=== PATIENT | female | born 1980 | race Caucasian/White ===

== ENCOUNTER 2021-11-12 10:30 | Emergency (ER) | payer OTHER, SELFPAY ==
--- NOTE | ~2021-11-12 | XR_ITS ---
EXAMINATION: XR chest 2V DATE: 11/12/2021 10:51 INDICATION: Cough and fever. TECHNIQUE: Frontal and lateral views of the chest were obtained. COMPARISON: None. FINDINGS: There are airspace opacities in left lower lobe. No pleural effusion or pneumothorax. The h eart size is normal. IMPRESSION: 1. Airspace opacities in left lower lobe, consistent with pneumonia. Reviewed, dictated and finalized at location A.
--- NOTE | 2021-11-12 10:33 | ED.URI ---
HPI - URI/Sore Throat General Chief Complaint: Upper Respiratory Infection Stated Complaint: Cough, fever, sore throat Time Seen by Provider: 11/12/21 10:34 Source: patient and RN notes reviewed History of Present Illness HPI Narrative: Patient is a 41-year-old female who presents the urgent care with complaints of cough, low-grade fever and sore throat since Thursday. Patient states that her youngest daughter had the symptoms that started last Thursday and just now was able to go back to school. Patient reports of increased shortness of breath and slight wheezing in the evenings. Denies of any nausea or vomiting. States that she is taking NyQuil and DayQuil every day since been started. States that her daughter was seen in urgent care this weekend and was negative for Covid, influenza and strep. No other acute complaints. No acute distress noted. Patient aware of the plan of care. Some parts of this dictation were generated by voice recognition software and may contain typographical and/or grammatical inaccuracies. Related Data Home Medications Medication Instructions Recorded Confirmed levothyroxine 88 mcg tablet 88 mcg PO DAILY tablet 07/26/20 04/05/21 desogestrel-e.estradiol 0.15 1 tablet PO DAILY 03/06/21 04/05/21 mg-0.02 mg(21)/e.estrad 0.01 mg(5) tablet Allergies Allergy/AdvReac Type Severity Reaction Status Date / Time No Known Allergies Allergy Unverified 04/04/21 16:31 Review of Systems Review of Systems: CONSTITUTIONAL: Denies fever, chills, or sweats. EYES: Denies visual changes, redness, or discharge. ENT: Reports of sinus congestion and mild sore throat CARDIOVASCULAR: Denies chest pain, palpitations, or edema. RESPIRATORY: Reports of nonproductive cough with wheezing and dyspnea GASTROINTESTINAL: Denies abdominal pain, nausea, vomiting, or diarrhea. GENITOURINARY: Denies dysuria or hematuria. SKIN: Denies rash or itching. MUSCULOSKELETAL: Denies back pain, joint pain, or myalgia. NEUROLOGIC: Denies headache, numbness, or weakness. All other systems reviewed are negative, except as documented in HPI. [facility] Past Medical History Medical History ANKIT (generalized anxiety disorder) Lucho's thyroiditis Hypothyroidism Migraines Family History Family History Mother Patient's mother is in good health Family history of colitis Family history of malignant neoplasm Father Patient's father is in good health Sibling Patient's sister is in good health Patient's brother is in good health Family history of malignant neoplasm Social History Social History (Updated 04/04/21 @ 16:31 by Jennifer Jackson) Social History: Single Years smoked: 28 Smoking status: Former smoker Tobacco type: cigarettes Second hand tobacco smoke exposure: Yes Alcohol intake: current Alcohol use details: occasionally Substance use: never Substance use type: does not use Gender identity (if verbalized by the patient): Female Sexual Orientation (if Verbalized by the Patient): Straight or Heterosexual Comments At the time of my signature, I reviewed and agree with the nursing past medical, surgical, social, and family history. There is no relevant family history pertinent to the patient complaint. Exam Narrative: GENERAL: This is a well-nourished, well-developed patient, in no apparent distress. HEAD: normocephalic, atraumatic. EYES: PERRL. Sclera clear/white. Vision is grossly intact. EARS: External ears normal, auditory canals clear and without drainage, TMs normal without perforation. Hearing grossly intact. NOSE: External nose normal with no obvious nasal discharge, nares without redness, clear rhinorrhea. THROAT: Mucous membranes moist, posterior pharynx clear. Mild postnasal drainage NECK: Neck supple CARDIOVASCULAR: Regular rate and rhythm without murmurs, gallops, or rubs.
[2021-11-12 10:38] VITALS: BP 141/78; PULSE 108; RESP 20; TEMP 36.6; O2SAT 99
[2021-11-12 10:43] VITALS: BP 141/78; PULSE 108; RESP 20; TEMP 36.6; O2SAT 99
== END 2021-11-12 11:27 | disposition home or self-care (01) ==
PROVIDERS: Emergency Provider Nurse Practitioner Family; PCP Family Medicine
DX: J18.1 Lobar pneumonia, unspecified organism (principal); E06.3 Autoimmune thyroiditis; E03.9 Hypothyroidism, unspecified; Z87.891 Personal history of nicotine dependence
CPT/HCPCS: 71046; 99213; G0463

== ENCOUNTER → 2021-12-11 11:04 | Outpatient (CLI) | payer OTHER, SELFPAY ==
--- NOTE | ~2021-12-11 | US_ITS ---
EXAMINATION: US thyroid DATE: 12/11/2021 11:31 INDICATION: Autoimmune thyroiditis TECHNIQUE: Multiple ultrasound images of the thyroid were obtained. COMPARISON: None. FINDINGS: The right thyroid lobe measures 4.5 x 1.6 x 1.5 cm. The left thyroid lobe measures 3.4 x 1.1 x 1.3 c m. No discrete nodules identified. The thyroid is diffusely hypoechoic with coarsened echotexture. IMPRESSION: 1. Diffusely hypoechoic thyroid with coarsened echotexture without discrete nodules consistent with p rovided history of autoimmune thyroiditis. Reviewed, dictated and finalized at location B. IMPRESSION: 1. Diffusely hypoechoic thyroid with coarsened echotexture without discrete nod ules consistent with provided history of autoimmune thyroiditis.
== END ==
PROVIDERS: PCP Family Medicine; Visit Provider Family Medicine
DX: E06.3 Autoimmune thyroiditis (principal); E03.9 Hypothyroidism, unspecified; E04.1 Nontoxic single thyroid nodule
CPT/HCPCS: 76536

== ENCOUNTER 2022-04-09 04:18 | Emergency (ER) | payer OTHER, SELFPAY ==
--- NOTE | ~2022-04-09 | XR_ITS ---
EXAMINATION: XR chest 2V DATE: 04/09/2022 05:03 INDICATION: Mid chest pain. TECHNIQUE: Frontal and lateral views of the chest were obtained. COMPARISON: Chest 2 views 11/12/2021, chest CT 04/09/2022 FINDINGS: The chest demonstrates clear lungs without pneumonia, pleural effusion, or pneumothorax. Th e heart size is normal. IMPRESSION: 1. No acute cardiopulmonary disease. Reviewed, dictated and finalized at location A.
--- NOTE | ~2022-04-09 | CT_ITS ---
EXAMINATION: CT chest abdomen pelvis w con DATE: 04/09/2022 05:52 INDICATION: Chest pain. Abdominal pain. Vomiting. TECHNIQUE: Computed tomography (CT) of the chest, abdomen, and pelvis was performed with 100 mL Omnip aque 350 intravenous contrast. Automated exposure control and iterative reconstruction technique were employed. The dose-length product was 1367.08 mGy-cm. COMPARISON: None FINDINGS: CHEST CT: There is mild dependent atelectasis bilaterally. No pleural effusion. The heart size is normal. No pe ricardial effusion. There is mild thoracic spondylosis. ABDOMEN/PELVIS CT: The liver and spleen are normal. The gallbladder is distended and contains gallstones. Gallbladder wa ll thickening is noted. There is pericholecystic fat stranding. The pancreas, adrenal glands, and kid neys are normal. There are no dilated loops of bowel. The appendix is normal. There are no pathologic ally enlarged lymph nodes. There is no free intraperitoneal fluid. There is mild lumbar spondylosis. IMPRESSION: 1. Acute cholecystitis. Reviewed, dictated and finalized at location A. IMPRESSION: 1. Acute cholecystitis.
--- NOTE | 2022-04-09 04:23 | ED.CHESTPAIN ---
HPI - Chest Pain General Chief Complaint: Chest Pain <Liyah Cain MD - Last Filed: 04/09/22 06:34> Stated Complaint: chest pain <Liyah Cain MD - Last Filed: 04/09/22 06:34> Time Seen by Provider: 04/09/22 04:23 <Liyah Cain MD - Last Filed: 04/09/22 06:34> Source: patient <Liyah Cain MD - Last Filed: 04/09/22 06:34> Mode of arrival: ambulatory <Liyah Cain MD - Last Filed: 04/09/22 06:34> Limitations: no limitations <Liyah Cain MD - Last Filed: 04/09/22 06:34> History of Present Illness HPI narrative: Patient is a 41-year-old female with a history of Lucho's/hypothyroidism presenting to the emergency department for evaluation of chest and abdominal pain. Patient reports she is experiencing upper abdominal pain and lower chest pain that awaken her from sleep. It is sharp, burning in nature in a bandlike pattern across her upper abdomen. Patient reports radiation of pain to her back. She denies associated upper chest pain, jaw pain, neck pain or shoulder pain. Patient denies diaphoresis, vomiting. She does report mild nausea. Patient denies cough or hemoptysis. She denies pain with deep inspiration but states it feels difficult to take a deep breath. Patient denies recent fall or injury. She denies history of this in the past. She reports that she ate beef stroganoff for dinner, denies history of significant acid reflux or gastritis. Patient denies any radiation to the lower flanks. She denies ripping or tearing sensation. Patient denies calf swelling or leg pain. <Liyah Cain MD - Last Filed: 04/09/22 06:34> Related Data Home Medications: Home Medications Medication Instructions Recorded Confirmed levothyroxine 88 mcg tablet 88 mcg PO DAILY 07/26/20 03/19/22 desogestrel-e.estradiol 0.15 1 tablet PO DAILY 03/06/21 03/19/22 mg-0.02 mg(21)/e.estrad 0.01 mg(5) tablet (Viorele (28)) <Liyah Cain MD - Last Filed: 04/09/22 06:34> Allergies/Adverse Reactions: Allergies Allergy/AdvReac Type Severity Reaction Status Date / Time No Known Allergies Allergy Unverified 03/19/22 13:05 <Liyah Cain MD - Last Filed: 04/09/22 06:34> Review of Systems Review of Systems: CONSTITUTIONAL: Denies fever, chills, or sweats. EYES: Denies visual changes, redness, or discharge. ENT: Denies rhinorrhea, congestion, sore throat, or otalgia. CARDIOVASCULAR: Patient reports lower chest pain without palpitations or edema RESPIRATORY: Denies cough, patient reports shortness of breath GASTROINTESTINAL: Patient reports upper abdominal pain, nausea without vomiting or diarrhea GENITOURINARY: Denies dysuria or hematuria. SKIN: Denies rash or itching. MUSCULOSKELETAL: Patient reports middle back pain without other joint pain, or myalgia. NEUROLOGIC: Denies headache, numbness, or weakness. <Liyah Cain MD - Last Filed: 04/09/22 06:34> [facility] Past Medical History Medical History: Medical History ANKIT (generalized anxiety disorder) Lucho's thyroiditis Hypothyroidism Migraines <Liyah Cain MD - Last Filed: 04/09/22 06:34> Family History Family History: Family History Mother Patient's mother is in good health Family history of colitis Family history of malignant neoplasm Father Patient's father is in good health Sibling Patient's sister is in good health Patient's brother is in good health Family history of malignant neoplasm <Liyah Cain MD - Last Filed: 04/09/22 06:34> Social History Social History: Social History Social History: Single Years smoked: 28 Smoking status: Former smoker Tobacco type: cigarettes Second hand tobacco smoke exposure: Yes Alcohol intake: current Alcohol use details: occasi
[2022-04-09 04:25] VITALS: BP 167/107; PULSE 94; RESP 20; TEMP 36.4; O2SAT 100
--- NOTE | 2022-04-09 04:29 | ECG_ITS ---
Measurements Intervals [place] Rate: 85 P: 58 SD: 129 QRS: 5 QRSD: 81 T: 41 QT: 396 QTc: 472 Interpretive Statements SINUS RHYTHM WITH FREQUENT AND CONSECUTIVE VENTRICULAR PREMATURE COMPLEXES NONSPECIFIC T-WAVE ABNORMALITY ABNORMAL RHYTHM ECG NO PREVIOUS ECG AVAILABLE FOR COMPARISON Electronically Signed On 04-14-2022 16:44:36 CDT by Art Brand M.D.
--- NOTE | 2022-04-09 04:33 | ECG_ITS ---
Measurements Intervals [place] Rate: 69 P: 44 MS: 138 QRS: 9 QRSD: 88 T: 13 QT: 408 QTc: 439 Interpretive Statements SINUS RHYTHM NONSPECIFIC T-WAVE ABNORMALIT BORDERLINE ECG NO PREVIOUS ECG AVAILABLE FOR COMPARISON Electronically Signed On 04-09-2022 16:05:06 CDT by Roscoe Flores M.D.
[2022-04-09] MEDS: ONDANSETRON INJ 4 MG/2 ML VIAL IV PUSH (04:39)
[2022-04-09 04:42] LABS: Basophils Percent Auto 0.3 % (0.2-1.2); Eosinophils Absolute Auto 0.4 K/mm3 (0-0.3); Eosinophils Percent Auto 2.8 % (0-4.4); Hematocrit 36.5 % (37.0-47.0); Hemoglobin 11.7 g/dL (12.0-15.0); Immature Granulocyte Absolute 0.04 K/mm3 (0.00-0.031); Immature Granulocyte Percent A 0.3 % (0-0.5); Lymphocytes Percent Auto 34.2 % (18.3-44.2); Mean Corpuscular HGB Conc 32.1 g/dl (32-36); Mean Corpuscular Hemoglobin 26.4 pg (26-34); Mean Corpuscular Volume 82.4 fl (80-100); Mean Platelet Volume 8.8 fl (7.4-10.4); Monocytes Absolute Auto 0.7 K/mm3 (0.1-0.6); Monocytes Percent Auto 5.9 % (2.6-8.5); Neutrophils Absolute Auto 6.9 K/mm3 (1.3-6.7); Neutrophils Percent Auto 56.5 % (45.5-73.1); Platelet Count Result 440 k/mm3 (150-375); Red Blood Count 4.43 M/mm3 (4.2-5.4); Red Cell Distribution Width 15.6 % (11.5-14.5); White Blood Count 12.3 K/mm3 (4.5-10.0)
[2022-04-09 04:48] VITALS: O2SAT 99
[2022-04-09 04:51] LABS: Alanine Aminotransferase 15 U/L (6-35); Albumin Level 3.9 g/dL (3.5-5.1); Alkaline Phosphatase 100 U/L (38-126); Anion Gap 11 mmol/L (8-16); Aspartate Amino Transferase 23 U/L (14-36); Bilirubin,Total 0.3 mg/dL (0.2-1.3); Blood Urea Nitrogen 11 mg/dL (7-17); Calcium 8.7 mg/dL (8.4-10.2); Carbon Dioxide 23 mmol/L (22-30); Chloride 104 mmol/L (98-107); Estimated CRCL calculation 79 ml/min; Estimated Glomerular Filt Rate > 60; Glucose 112 mg/dL (65-110); Lipase 123 U/L (23-300); Potassium 3.1 mmol/L (3.4-5.0); Sodium 138 mmol/L (137-145)
[2022-04-09] MEDS: MORPHINE SULFATE (*CRX) 4 MG/ML INJ IV PUSH (04:52)
[2022-04-09 04:53] LABS: INR 0.9; Partial Thromboplastin Time 24.1 SECONDS (22.3-36.8); Prothrombin Time 11.9 Seconds (11.1-14.7)
[2022-04-09] MEDS: ASPIRIN 81 MG CHEWABLE TABLET 324 MG PO (04:53)
[2022-04-09 05:05] LABS: Troponin I < 0.012 ng/mL (0.000-0.034)
[2022-04-09] MEDS: BELLADONNA ALK/PHENOB ELIX 10 ML, MAG HYDROX/ALUMINUM HYD/SIMETH 30 ML, LIDOCAINE HCL 2... PO (05:29)
[2022-04-09 05:38] VITALS: BP 153/90; PULSE 67; RESP 20; O2SAT 98
--- NOTE | 2022-04-09 05:39 | PC.NURSE ---
Pt to CT scan via stretcher.
[2022-04-09 06:30] LABS: Appearance Urine Clear (Clear); Bilirubin Urine Negative (Negative); Blood Urine 2+ (Negative); Color Urine Yellow (Yellow); Glucose Urine UA Negative (Negative); Ketones Urine Negative (Negative); Leukocyte Esterase Ur Negative LEU/UL (Negative); Nitrate Urine Negative (Negative); Protein Urine Negative (Negative); Urobilinogen Urine 0.2 mg/dL (<2.0)
[2022-04-09 06:34] LABS: Mucus Urine Rare /lpf; RBC Urine >75 /hpf (0-2); Squamous Epithelial Cell Urine Rare /hpf (Few)
[2022-04-09] MEDS: FAMOTIDINE 20 MG TABLET 40 MG PO (06:34)
[2022-04-09 06:36] LABS: Add Urine Microscopic? YES
[2022-04-09 06:39] VITALS: BP 133/74; PULSE 72; RESP 20; O2SAT 100
[2022-04-09 08:26] VITALS: BP 130/75; PULSE 74; RESP 20; O2SAT 99
[2022-04-09 08:30] LABS: Troponin I < 0.012 ng/mL (0.000-0.034)
== END 2022-04-09 08:28 | disposition home or self-care (01) ==
PROVIDERS: Emergency Provider Emergency Medicine; PCP Family Medicine
DX: K81.0 Acute cholecystitis (principal); E06.3 Autoimmune thyroiditis; E03.9 Hypothyroidism, unspecified; Z87.891 Personal history of nicotine dependence; I49.3 Ventricular premature depolarization
CPT/HCPCS: 36415; 71046; 71260; 74177; 80053; 81001; 83690; 84484; 85025; 85610; 85730; 93005; 96374; 96375; 99284; A9270; J2270; J2405; Q9967

== ENCOUNTER 2022-04-17 12:02 | Outpatient (CLI) | payer OTHER, SELFPAY ==
--- NOTE | ~2022-04-17 | US_ITS ---
EXAMINATION: US venous doppler [facility] DATE: 04/17/2022 12:51 INDICATION: Other specified soft tissue disorders. TECHNIQUE: Grayscale ultrasound images without and with compression and Doppler ultrasound images of the left upper extremity veins were obtained. COMPARISON: None. FINDINGS: The visualized portions of the left internal jugular vein, subclavian vein, axillary vein, brachial v eins, basilic vein, radial vein, and ulnar vein are patent. There is thrombus in left cephalic vein. IMPRESSION: 1. No deep venous thrombosis. 2. Thrombus in left cephalic vein, which is a superficial vein. Reviewed, dictated and finalized at location A.
== END 2022-04-17 12:03 | disposition home or self-care (01) ==
PROVIDERS: PCP Family Medicine; Visit Provider Physician Assistant
DX: M79.89 Other specified soft tissue disorders (principal); I82.612 Acute embolism and thrombosis of superficial veins of left upper extremity
CPT/HCPCS: 93971

== ENCOUNTER 2022-04-28 09:31 | Outpatient (CLI) | payer OTHER, SELFPAY ==
[2022-04-28 10:28] LABS: Potassium 3.5 mmol/L (3.4-5.0)
[2022-04-28 10:31] LABS: Amylase 45 U/L (30-110)
== END 2022-04-28 09:32 | disposition home or self-care (01) ==
LOC: ANHSURGERY 09:39
PROVIDERS: Anesthesiology; PCP Family Medicine; Visit Provider Surgery
DX: E87.6 Hypokalemia (principal); K81.0 Acute cholecystitis
CPT/HCPCS: 36415; 82150; 84132; 86850; 86900; 86901

== ENCOUNTER 2022-04-29 01:09 | Day surgery (SDC) | payer OTHER, SELFPAY ==
[2022-04-24 13:53] VITALS: BMI 35.8
--- NOTE | 2022-04-24 14:10 | PC.NURSE ---
Addendum entered by Amy Mohan RN 04/25/22 10:26: PT MAY ALSO TAKE ANTIBIOTICS AND PAIN PILL (IF NEEDED) MORNING OF SURGERY WITH A SMALL SIP OF WATER. Addendum entered by Deysi Fang RN 04/24/22 14:30: LAST DOSE TO TAKE VITAMIN 04-27-22 Original Note: Report to the Outpatient Waiting Room, entrance under the green pavilion located off [address], at time ____10:00AM___ on date __[id number] . OR Time: ___12:00PM . Time changes happen often and if your time is changed the preop area will call you the afternoon before. - You and your visitor will be asked to self-screen and do not enter if you have any COVID symptoms. - Only one visitor and NO children visitors are allowed at this time. - The patient visitor is requested to leave or wait in car when not with patient due to restrictions. - A mask is required within the hospital. Patients may have clear liquids (water, carbonated beverages, clear teas, apple juice) until 3 hours prior to surgery with a maximum of 20 ounces. - No food from midnight until time of surgery - NOTHING TO DRINK AFTER 09:00AM Take the following medications with a SIP of water the morning of surgery: LEVOTHYROXINE Medications to discontinue per physician VITAMINS Date to take last mnul____3-7-10 Please no make-up, nail congolese, hairspray, perfume, deodorant, or body powder the day of surgery. No jewelry (including any body piercings) or valuables the day of surgery, leave them at home. Please take a shower or bath the night before, or the morning of, surgery with an antibacterial soap. Wear comfortable, loose fitting clothing. - Jewelry must be removed prior to entering the operating room. Rings and piercings that are not removed may be cut off. - The hospital will not accept responsibility for valuables. - Please leave all valuables, including medications, at home the day of surgery. If you are going home after surgery, a licensed commercial collections driver must drive you home. - NO public transportation without another adult. - We recommend that an adult stay with you for 24 hours following discharge. - We also recommend that you do not drive, make important decision, drink alcoholic beverages, or take any drugs that were not prescribed by your health care provider for at least 24 hours after your discharge time. Follow any additional instructions given to you from your surgeon. If you or anyone in your household have experienced Covid symptoms in the past week, please notify your surgeon or the nurse liaison at the phone number below for possible testing. Telephone instructions given to ___PATIENT and asked if any additional questions and then verbalized understanding. Patient advised to call surgeon office or pre surgery nurse liaison [phone] if any additional questions.
[2022-04-29] VITALS (10 sets, daily range): BP systolic 124–156; BP diastolic 71–85; PULSE 79–95; RESP 16–20; TEMP 36.4–36.7; O2SAT 94–100
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
--- NOTE | 2022-04-29 11:21 | WPDHPUPDATE1 ---
History and Physical Update Update Date/Time: 04/29/22 11:21 History and Physical has been reviewed, including an updated exam of the patient. There are NO changes in the patient's condition. Risks, benefits, and alternatives have been discussed and questions answered. Patient agrees to proceed with procedure.
[2022-04-29] MEDS: LACTATED RINGERS 1,000 ML 30 ML IV CONT ×2 (11:40→13:09)
[2022-04-29] MEDS: ACETAMINOPHEN 500 MG TABLET 1000 MG PO (11:41)
[2022-04-29] MEDS: KETOROLAC 15 MG/ML VIAL (*BKC) IV PUSH (11:41)
[2022-04-29] MEDS: ceFAZolin 2 GM/D5W 50 ML 2 GM/50 ML BAG IVPB (11:44)
[2022-04-29] MEDS: BUPIVACAINE/EPINEPHRINE 0.25% 50 ML VIAL INFILTRATE (12:07)
--- NOTE | 2022-04-29 12:47 | W.PM.PROC2 ---
Procedure Note - Detailed Date of Procedure 04/29/22 Pre-op Diagnosis acute cholecystitis, cholelithiasis Post-op Diagnosis Same Procedure Performed Laparoscopic cholecystectomy Surgeon Shavon Rosa MD Anesthesia General Indications 41-year-old female presented to the office complaining of postprandial right upper quadrant abdominal pain associated with nausea and vomiting. Workup including imaging significant for cholecystitis, cholelithiasis. Findings Cholecystitis with cholelithiasis Description of Procedure The patient was taken to the operating room placed in the supine position. After adequate induction of general anesthesia, the patient was prepped and draped in normal sterile fashion. A time-out was then performed to verify the patient's identity as well as the procedure being performed. I then made a 5 mm incision in the infraumbilical region. Through this, a Veress needle was placed into the peritoneal cavity and CO2 gas was then insufflated. After adequate pneumoperitoneum was achieved, the Veress needle was removed and a 5 mm optiview trocar was placed through this incision under direct visualization. I then placed the laparoscope through this trocar site and under direct visualization placed a further 12 mm subxiphoid port as well as 2 additional 5 mm ports in the right upper abdomen. The gallbladder was then identified and was noted to be moderately inflamed, and distended. I was able to place a grasper at the dome of the gallbladder and this was retracted anterior and cephalad up over the liver. A 2nd retractor was then placed at the infundibulum and retracted laterally, this allowed visualization of the triangle of Calot. I then was able to visualize the cystic duct in its entirety from its proximal insertion into the gallbladder, to its distal junction with the common hepatic/common bile duct junction. At this point, I carefully skeletonized the proximal cystic duct with the [place] dissector. I then clipped and transected the proximal cystic duct. Next I visualized the cystic artery. Again the artery was skeletonized, clipped, and transected. I then used the Bovie cautery to take down the peritoneal attachments of the gallbladder off the liver bed. Once the gallbladder specimen was completely detached, an endo-pouch was placed through the 12 mm port site. I then placed the gallbladder specimen into the Endo pouch and removed the endo-pouch from the 12 mm port site. The specimen will now be sent to pathology for further review. I then copiously irrigated the right upper quadrant. Hemostasis was noted in the liver bed, the clips were noted to be in good position on both the cystic duct stump and the cystic artery stump. No other pathology was noted in the right upper quadrant. I then moved the laparoscope to the subxiphoid port. No iatrogenic injury or other pathology was noted in the lower abdomen. I then closed the 12 mm trocar site under direct visualization using the Nahum cone and 0 Vicryl suture. At this point, the abdomen was desufflated and all ports removed. All port sites were then closed with 4.O Monocryl subcuticular sutures. Dermabond was placed on each incision. The patient tolerated the procedure well, was extubated in the operating room postoperative and will be transferred to the recovery room in stable condition Estimated Blood Loss 5 Drains No Packing No Pathology Yes Complications No immediate complications Condition Stable Disposition PACU [facility] Billing Surgery - Charge Forward: Surgery Billing
[2022-04-29] MEDS: fentaNYL CITRATE INJ (*CRX) 100 MCG/2 ML VIAL 25 MCG IV PUSH ×6 (12:57→13:47)
[2022-04-29] MEDS: ONDANSETRON INJ 4 MG/2 ML VIAL IV PUSH (13:03)
[2022-04-29] MEDS: oxyCODONE HCL (*CRX) 5 MG TAB IR PO (14:12)
== END 2022-04-29 15:00 | disposition home or self-care (01) ==
PROVIDERS: PCP Family Medicine; Visit Provider Surgery
PROC: 0FT44ZZ Resection of Gallbladder, Percutaneous Endoscopic Approach (ICD-10-PCS; CPT 47562; principal; 2022-04-29 12:00)
DX: K80.10 Calculus of gallbladder with chronic cholecystitis without obstruction (principal); E03.9 Hypothyroidism, unspecified; F41.1 Generalized anxiety disorder; E06.3 Autoimmune thyroiditis; Z86.73 Personal history of transient ischemic attack (TIA), and cerebral infarction without residual deficits; F17.210 Nicotine dependence, cigarettes, uncomplicated; E66.9 Obesity, unspecified; Z68.36 Body mass index [BMI] 36.0-36.9, adult
CPT/HCPCS: 47562; 88304; A9270; J0690; J1100; J1885; J2250; J2405; J2704; J2710; J3010; J7030; J7120

== ENCOUNTER 2024-04-23 00:21 | Inpatient (IN) | payer OTHER, SELFPAY ==
[2024-04-23] VITALS (37 sets, daily range): BP systolic 118–161; BP diastolic 61–97; PULSE 105–156; RESP 18–95; TEMP 37–39.9; O2SAT 88–100; BMI 31.1
--- NOTE | ~2024-04-23 | CT_ITS ---
EXAMINATION: CTA chest PE protocol DATE: 04/23/2024 02:33 INDICATION: Hypoxia. Tachycardia. TECHNIQUE: Computed tomography angiography (CTA) of the chest was performed with 100 mL Omnipaque-350 intravenous contrast timed to evaluate the pulmonary arteries. Coronal maximum intensity projection 3D-reconstructions were created by the technologist. Automated exposure control and iterative reconst ruction technique were employed. The dose-length product was 342.22 mGy-cm. COMPARISON: Chest CT 04/09/2022 FINDINGS: There are scattered centrilobular nodules in all lobes. There are airspace opacities in rig ht upper lobe and medial segment right middle lobe with air bronchograms. There is a small right pleu ral effusion. The heart size is normal. No pericardial effusion. There are changes of cholecystectomy . There is no pulmonary embolus. There is mild thoracic spondylosis. IMPRESSION: 1. No pulmonary embolus. 2. Multifocal pneumonia, worst in right upper lobe. 3. Small right pleural effusion. Reviewed, dictated and finalized at location A.
--- NOTE | ~2024-04-23 | XR_ITS ---
EXAMINATION: XR chest PICC line DATE: 04/23/2024 10:16 INDICATION: Central line placement. TECHNIQUE: A single frontal view of the chest was obtained. COMPARISON: Chest 2 views 04/09/2022, chest CT 04/23/2024 FINDINGS: There are airspace opacities in all lung zones, worst in right upper lobe, consistent with pneumonia. No pleural effusion or pneumothorax. The heart size is normal. A right upper extremity per ipherally inserted central venous catheter (PICC) is seen with tip at the superior cavoatrial junctio n. IMPRESSION: 1. PICC tip at superior cavoatrial junction. 2. Multifocal pneumonia, worst in right upper lobe. Reviewed, dictated and finalized at location A.
--- NOTE | ~2024-04-23 | XR_ITS ---
EXAMINATION: XR abdomen/kub 1V DATE: 04/23/2024 11:05 INDICATION: Nasogastric tube placement. TECHNIQUE: An upright view of the abdomen was obtained. COMPARISON: None. FINDINGS: The lower abdomen is excluded. There are no dilated loops of bowel. The nasogastric tube ti p is in the stomach. Surgical clips in the right upper quadrant are likely from cholecystectomy. IMPRESSION: 1. Nasogastric tube tip in the stomach. Reviewed, dictated and finalized at location A.
--- NOTE | ~2024-04-23 | XR_ITS ---
EXAMINATION: XR chest 1V portable DATE: 04/23/2024 11:05 INDICATION: Intubation. TECHNIQUE: A single frontal view of the chest was obtained. COMPARISON: Chest single view at 10:10 AM FINDINGS: There are airspace opacities in all lung zones bilaterally, worst in right upper lobe. No p leural effusion or pneumothorax. The heart size is normal. The endotracheal tube tip is 1.7 cm above the tita. The nasogastric tube tip is in the stomach. A right upper extremity peripherally inserted central venous catheter (PICC) is seen with tip in the right subclavian vein. IMPRESSION: 1. Multifocal pneumonia, worst in right upper lobe. 2. PICC folded on itself, now with tip in the right subclavian vein. Reviewed, dictated and finalized at location A.
--- NOTE | ~2024-04-23 | XR_ITS ---
EXAMINATION: XR chest port-a-cath/central DATE: 04/23/2024 12:52 INDICATION: Central line placement. TECHNIQUE: A single frontal view of the chest was obtained. COMPARISON: Chest single view at 10:43 AM FINDINGS: There are airspace opacities in all lung zones bilaterally, worst in right upper lobe. No p leural effusion or pneumothorax. The heart size is normal. The endotracheal tube tip is 3.7 cm above the tita. The nasogastric tube tip is beyond the inferior margin of the radiograph, but at least to the stomach. A right internal jugular central venous catheter is seen with tip in the right atrium. A right upper extremity peripherally inserted central venous catheter (PICC) is seen with tip in the right subclavian vein. Surgical clips in the right upper quadrant are likely from cholecystectomy. IMPRESSION: 1. New central line tip in the right atrium. 2. Multifocal pneumonia, worst in right upper lobe. 3. PICC folded on itself with tip in the right brachiocephalic vein. Reviewed, dictated and finalized at location A.
--- NOTE | 2024-04-23 00:26 | ECG_ITS ---
Test Date: 2024-04-23 01:23:18 Measurements Intervals [place] Rate: 101 P: 58 [place]: 135 QRS: 11 QRSD: 82 T: 26 QT: 299 QTc: 388 Interpretive Statements SINUS TACHYCARDIA CANNOT R/O SEPTAL INFARCT, AGE INDETERMINATE BORDERLINE ST-T WAVE ABNORMALITY- INF/LAT LEADS ABNORMAL ECG No previous ECG available for comparison Electronically Signed On 04-23-2024 06:36:01 CDT by Gamaliel Steven D.O.
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
[2024-04-23] MEDS: LORazepam (*CRX) 0.5 MG TABLET PO ×2 (00:56→04:44)
[2024-04-23] MEDS: SODIUM CHLORIDE 0.9% IV 1,000 ML 999 ML IV CONT ×3 (01:14→10:27)
[2024-04-23 01:23] LABS: Basophils Percent Auto 0.3 % (0.2-1.2); Hematocrit 27.8 % (37.0-47.0); Immature Granulocyte Absolute 0.04 K/mm3 (0.00-0.031); Immature Granulocyte Percent A 0.5 % (0-0.5); Lymphocytes Absolute Auto 1.44 K/mm3 (0.9-3.2); Lymphocytes Percent Auto 16.7 % (18.3-44.2); Mean Corpuscular HGB Conc 32.4 g/dl (32-36); Mean Corpuscular Hemoglobin 25.4 pg (26-34); Mean Corpuscular Volume 78.5 fl (80-100); Mean Platelet Volume 9.7 fl (7.4-10.4); Monocytes Absolute Auto 0.4 K/mm3 (0.1-0.6); Monocytes Percent Auto 4.9 % (2.6-8.5); Neutrophils Absolute Auto 6.7 K/mm3 (1.3-6.7); Neutrophils Percent Auto 77.6 % (45.5-73.1); Platelet Count Result 308 k/mm3 (150-375); Red Blood Count 3.54 M/mm3 (4.2-5.4); Red Cell Distribution Width 16.5 % (11.5-14.5); White Blood Count 8.6 K/mm3 (4.5-10.0)
[2024-04-23] MEDS: KETOROLAC 15 MG/ML VIAL (*BKC) IV PUSH (01:30)
[2024-04-23 01:32] LABS: Lipase 77 U/L (23-300)
[2024-04-23 01:35] LABS: INR 0.9; Partial Thromboplastin Time 21.8 Seconds (22.3-36.8); Prothrombin Time 12.5 Seconds (11.1-14.7)
[2024-04-23 01:39] LABS: Alanine Aminotransferase 22 U/L (6-35); Albumin Level 3.4 g/dL (3.5-5.1); Alkaline Phosphatase 77 U/L (38-126); Anion Gap 10 mmol/L (4-12); Aspartate Amino Transferase 37 U/L (14-36); Bilirubin,Total 0.2 mg/dL (0.2-1.3); Blood Urea Nitrogen 4 mg/dL (7-17); Calcium 8.5 mg/dL (8.4-10.2); Carbon Dioxide 22 mmol/L (22-30); Chloride 104 mmol/L (98-107); Estimated CRCL calculation 88 ml/min; Estimated Glomerular Filt Rate > 60; Glucose 108 mg/dL (65-110); Potassium 2.8 mmol/L (3.4-5.0); Sodium 136 mmol/L (137-145)
[2024-04-23 01:44] LABS: Troponin I 0.015 ng/mL (0.000-0.034)
[2024-04-23 01:57] LABS: Influenza A QL RT-PCR Negative (Negative); Influenza B QL RT-PCR Negative (Negative); RSV RNA, RT-PCR Negative (Negative); SARS-CoV-2 RNA PCR Negative (Negative)
[2024-04-23] MEDS: PIPERACILLIN/TAZ 4.5G/NS 100ML 4.5 GM/100 ML BAG IVPB (03:29)
[2024-04-23] MEDS: ACETAMINOPHEN 500 MG TABLET 1000 MG PO (04:44)
[2024-04-23] MEDS: POTASSIUM CHLORIDE 20 MEQ ER TABLET 40 MEQ PO (04:46)
[2024-04-23] MEDS: POTASSIUM CHLORIDE INJ 40 MEQ in SODIUM CHLORIDE 0.9% IV 500 ML 130 MEQ IVPB (05:00)
[2024-04-23 05:04] LABS: Troponin I 0.019 ng/mL (0.000-0.034)
[2024-04-23] MEDS: VANCOMYCIN 2,000 MG/NS 500 ML 2,000 MG/500 ML BAG 250 MG IVPB (05:05)
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
--- NOTE | 2024-04-23 05:46 | ADMGEN ---
This patient, Madalyn Rasmussen, was admitted to Medical Room 248-01. Patient/family oriented to hospital policies and general routines including ID bracelet, bed and alarms, visiting hours, pain management, procedures, bathroom and other care routines, personal items, smoking policy, room service/diet, and visiting hours. Information on how to activate the Rapid Response Team has been discussed. Patient/Family are encouraged to report perceived risks to care and to ask questions if they do not understand what they are told or what they should do.
[2024-04-23 05:52] LABS: MRSA (PCR) NOT DETECTED (NOT DETECTE)
[2024-04-23 06:20] LABS: Magnesium 1.8 mg/dL (1.6-2.3)
--- NOTE | 2024-04-23 07:15 | PC.NURSE ---
Upon entering patient's room during morning rounds, she appeared in obvious respiratory distress. I immediately called Dr. Santana and asked if he could come assess the patient. He came to her room in a few minutes, and our respiratory care team eventually put patient on bipap. Shortly after this, she was evaluated by the toe pounder and transferred to the ICU.
[2024-04-23 07:48] LABS: Immature Reticulocyte Fraction 3.8 % (3.0-15.9); Reticulocyte Hemoglobin Conten 20.8 pg (28.2-36.6); Reticulocyte Percent 0.56 % (0.7-4.3); Reticulocytes Absolute 0.02 10^6/uL (0.02-0.10)
[2024-04-23 08:11] LABS: Troponin I 0.017 ng/mL (0.000-0.034)
[2024-04-23 08:13] LABS: Iron 13 ug/dL (37-170)
[2024-04-23 08:22] LABS: Percent Iron Saturation 4 % (20-50)
[2024-04-23] MEDS: LEVALBUTEROL NEB 1.25 MG/3 ML INHALATION ×2 (08:33→13:00)
[2024-04-23] MEDS: IPRATROPIUM BR 0.02% INH SOLN 0.5 MG/2.5 ML VIAL INHALATION ×2 (08:33→13:00)
[2024-04-23] MEDS: cefTRIAXone 2 GM/NS 100 ML 2 GM/100 ML BAG IVPB (09:11)
--- NOTE | 2024-04-23 09:34 | PC.NURSE ---
Pt SO, Yassine, updated on condition, difficulty breathing & need for higher level of care; notified that she has been transferred to ICU-8
[2024-04-23] MEDS: ACETAMINOPHEN ELIXIR 325 MG/10.15 ML UDC 650 MG PO (09:40)
--- NOTE | 2024-04-23 09:43 | WPDCNINT ---
Assessment and Plan Assessment and plan (1) Acute hypoxic respiratory failure: Code(s): J96.01 - Acute respiratory failure with hypoxia Status: Acute Assessment and Plan: 04/23: Patient presented with cough, shortness of breath, hypoxia, fevers. Was diagnosed with pneumonia and Acute hypoxic respiratory failure -patient brought to the ER from the medical floor new severe tachypnea, tachycardia, shortness of breath, hypoxia -patient has been tachypneic since a long time, with barely any air entry on auscultation -discussed with patient and her have decided to intubate the patient -04/23: Patient intubated -placed on CMV mode of ventilation, peep of 8 and 100% FiO2, will obtain post intubation ABGs and adjust ventilator accordingly -continue bronchodilators Sedation with propofol and Fentanyl, maintain RASS of 0 to -2 Daily spontaneous breathing trial and spontaneous awakening trials 04/23: Chest CTA shows multifocal pneumonia worsened right upper lobe, no pulmonary embolism, small pleural effusion (2) Sepsis: Code(s): A41.9 - Sepsis, unspecified organism Status: Acute Assessment and Plan: Tachycardia, tachypnea, fevers with a T-max of 103.5? -likely related to multifocal pneumonia worsened right upper lobe -patient started on vancomycin Zosyn and azithromycin (start date: 04/23) -04/23: Blood cultures obtained and pending -04/23: Sputum cultures have been obtained and pending Influenza, RSV and COVID PCR are negative -will give additional IV fluid bolus and start patient on maintenance IV fluids (3) Multifocal pneumonia: Code(s): J18.9 - Pneumonia, unspecified organism Status: Acute Assessment and Plan: Multifocal pneumonia, worse in the right upper lobe as seen on CT scan as above -continue antibiotic -will start hydrocortisone 50 mg IV q.6 hours (4) Lucho's disease: Code(s): E06.3 - Autoimmune thyroiditis Status: Acute Assessment and Plan: Continue levothyroxine (5) GERD (gastroesophageal reflux disease): Code(s): K21.9 - Gastro-esophageal reflux disease without esophagitis Status: Acute Assessment and Plan: Added Protonix (6) OCD (obsessive compulsive disorder): Code(s): F42.9 - Obsessive-compulsive disorder, unspecified Status: Acute Assessment and Plan: Continue sertraline (7) ANKIT (generalized anxiety disorder): Code(s): F41.1 - Generalized anxiety disorder Status: Acute Assessment and Plan: Continue sertraline Plan DVT prophylaxis: Lovenox Stress ulcer prophylaxis: Protonix Nutrition: NPO Code Status: Full code Critical Care Time Spent: 55 minutes Discussed with 2 daughters and updated them with patient's condition and plan of care. I answered all questions., the patient also wanted me talk to her significant other on the phone prior to intubation which I did and explained him the rationale for intubation which he did understand and comprehend. I answered his questions too Family wants patient to be transferred to [place], I called the transfer line, dated take all the information and will get back to me. Patient was accepted to [facility], accepting physician was Dr. Graham. Patient was transferred to [facility] on 04/23/2024 Due to a high probability of clinically significant, life threatening deterioration, the patient required my highest level of preparedness to intervene emergently and I personally spent this critical care time directly and personally managing the patient. This critical care time included obtaining a history; examining the patient; pulse oximetry; ordering and review of studies; arranging urgent treatment with development of a management plan; evaluation of patient's response to treatment; frequent reassessment; and discussions with other providers. It was exclusive of separately billable procedures and treating ot
[2024-04-23] MEDS: METOPROLOL TARTRATE INJ 5 MG/5 ML VIAL IV PUSH (09:49)
[2024-04-23] MEDS: LORazepam INJ (*CRX) 2 MG/ML VIAL 1 MG IV PUSH (09:49)
[2024-04-23] MEDS: LIDOCAINE HCL 1% PF INJ 5 ML VIAL INFILTRATE (10:21)
[2024-04-23] MEDS: ROCURONIUM BROMIDE 50 MG/5 ML VIAL IV PUSH ×2 (10:23→12:01)
[2024-04-23] MEDS: ETOMIDATE 40 MG/20 ML VIAL 20 MG IV PUSH (10:23)
[2024-04-23] MEDS: PROPOFOL IV EMULSION 100 ML 2.55 MG IV CONT (10:30)
[2024-04-23] MEDS: MIDAZOLAM HCL (*CRX) 2 MG/2 ML VIAL IV PUSH (10:40)
[2024-04-23 11:07] LABS: Basophils Percent Auto 0.2 % (0.2-1.2); Hematocrit 28.4 % (37.0-47.0); Hemoglobin 8.8 g/dL (12.0-15.0); Immature Granulocyte Absolute 0.03 K/mm3 (0.00-0.031); Immature Granulocyte Percent A 0.3 % (0-0.5); Lymphocytes Absolute Auto 1.36 K/mm3 (0.9-3.2); Lymphocytes Percent Auto 13.5 % (18.3-44.2); Mean Corpuscular Hemoglobin 24.9 pg (26-34); Mean Corpuscular Volume 80.2 fl (80-100); Mean Platelet Volume 9.2 fl (7.4-10.4); Monocytes Absolute Auto 0.3 K/mm3 (0.1-0.6); Neutrophils Absolute Auto 8.4 K/mm3 (1.3-6.7); Platelet Count Result 287 k/mm3 (150-375); Red Blood Count 3.54 M/mm3 (4.2-5.4); White Blood Count 10.1 K/mm3 (4.5-10.0)
[2024-04-23 11:18] LABS: Prothrombin Time 13.8 Seconds (11.1-14.7)
[2024-04-23 11:20] LABS: Lactic Acid Reflex 1.8 mmol/L (0.7-2.0); Lipase 38 U/L (23-300); Phosphorus 1.6 mg/dL (2.5-4.5)
[2024-04-23 11:21] LABS: Triglycerides 123 mg/dL (<150)
[2024-04-23 11:36] LABS: Alanine Aminotransferase 24 U/L (6-35); Alkaline Phosphatase 71 U/L (38-126); Anion Gap 11 mmol/L (4-12); Aspartate Amino Transferase 34 U/L (14-36); Bilirubin,Total 0.2 mg/dL (0.2-1.3); Blood Urea Nitrogen 3 mg/dL (7-17); CRP 15.9 mg/dL (<1.0); Calcium 7.3 mg/dL (8.4-10.2); Carbon Dioxide 21 mmol/L (22-30); Chloride 108 mmol/L (98-107); Creatine Kinase 68 U/L (30-135); Estimated CRCL calculation 97 ml/min; Estimated Glomerular Filt Rate > 60; Glucose 127 mg/dL (65-110); Magnesium 1.7 mg/dL (1.6-2.3); Potassium 3.4 mmol/L (3.4-5.0); Sodium 140 mmol/L (137-145)
[2024-04-23 11:44] LABS: Hemoglobin A1C 5.7 % (<5.7)
[2024-04-23] MEDS: ENOXAPARIN 40 MG/0.4 ML SYRINGE SUB-Q (11:47)
[2024-04-23] MEDS: LACTATED RINGERS 1,000 ML 75 ML IV CONT (11:47)
[2024-04-23] MEDS: PANTOPRAZOLE SODIUM IV 40 MG VIAL IV PUSH (11:47)
[2024-04-23] MEDS: HYDROCORTISONE SODIUM SUCCINATE 100 MG/2 ML VIAL 50 MG IV PUSH ×2 (11:47→15:43)
[2024-04-23] MEDS: AZITHROMYCIN 500 MG/NS 250 ML 500 MG/250 ML BAG 250 MG IVPB (11:47)
--- NOTE | 2024-04-23 11:47 | WPDPROCEDUR ---
Procedures Intubation Intubation Date: 04/23/24 Intubation Time: 10:40 Consent: Consent was obtained while the patient was awake and alert in consented to intubation due to impending in worsening respiratory failure severe tachypnea, tachycardia. A pre-procedural Time-Out was completed immediately before starting the procedure and confirmed: Patient Identification, Site, Procedure, Patient Position and the Availability of Requisite Equipment: Yes Sedative: etomidate Paralytic: succinylcholine Laryngoscope: fiber optic video scope Assist device used: fiber optic device ET tube size: 7.5 Tube secured depth (cm): 22 Tube secured location: lips Tube placement confirmation: visualized tube passing through cords, equal breath sounds bilaterally, no breath sounds over epigastrium and confirmation by capnometry Patient tolerated procedure: well Intubation complications: none Additional comments: Vocal cords for anterior
[2024-04-23] MEDS: MIDAZOLAM HCL (*CRX) 10 MG/2 ML VIAL 2 MG IV PUSH (11:49)
[2024-04-23] MEDS: FENTANYL 2,500MCG/NS250ML(*CRX 2,500 MCG/250 ML BAG IV CONT (11:53)
[2024-04-23 11:59] LABS: Alveolar/Arterial O2 Gradient 576.1 mmHg; Base Excess ABG -2.8 mEq/l (+/-2.0); Fractional Inspired Oxygen 100 %; HCO3 ABG 22.8 mEq/l (22.0-26.0); Oxygen Content ABG 13.4 %vol (16.0-22.0); Oxygen Saturation ABG 96.7 % (95.0-100.0); Oxyhemoglobin 96.2 % THb (90.0-100.0); PCO2 ABG 43.4 mmHg (35.0-45.0); PO2 ABG 93.5 mmHg (80.0-100.0); PO2 FiO2 Ratio Arterial Blood 0.94 %; Total Hemoglobin 9.8 g/dL (12.0-18.0); pH ABG 7.339 (7.350-7.450)
[2024-04-23 12:00] LABS: Device VENTILATOR; Modified Allen's Test Pass; Site Drawn RIGHT RADIAL
[2024-04-23] MEDS: fentaNYL CITRATE INJ (*CRX) 100 MCG/2 ML VIAL IV PUSH (12:00)
[2024-04-23 12:01] LABS: Arterial Blood Gas PEEP 8 cmH2O; Arterial Blood Gas Tidal Volume 400 ml; Arterial Blood Gas Vent Mode CMV; Arterial Blood Gas Ventilator rate 26 /MIN
--- NOTE | 2024-04-23 12:36 | WPDPROCEDUR ---
Procedures Central Line Placement Right IJ: Central Line Date: 04/23/24 Central Line Time: 12:15 Discussed w/ the patient/family/POA,the placement of a central venous catheter, including its clinical necessity/indication & associated potential risks, benifits and alternatives.: Yes The patient/family/POA understand(s) and acknowledge(s) the need to proceed with central venous catheter insertion as an important element of the patient's clinical management.: Yes Consent: I have discussed with the patient and/or surrogate, the non-emergent placement of a central venous catheter, including its clinical necessity/indication and associated potential risks and complications. The patient and/or surrogate understand(s) and acknowledge(s) the need to proceed with central venous catheter insertion as an important element of the patient's clinical management. Time Out Performed: Yes Patient Position: supine Patient placed on monitor/pulse ox: Yes Provider Prep: mask, sterile gown, sterile gloves, Max. sterile barrier precautions, cap and hand hygiene with conventional soap/water or alcohol based hand rub Central line prep: 2% Chlorhexidine scrub Local anesthesia used: lidocaine 1% Amount of anesthesia used (ml): 3 Sterile US Technique with sterile gel/sterile probe covers: Yes Central line lumen inserted: triple English: 12 Length (cm): 16 Depth of Insertion (cm): 16 Post Procedure: sutured in place, good blood return, all ports aspirated, flushed, capped, transparent dressing, hemostatic product, antimicrobial product, securement product and aseptic technique maintained throughout procedure Post procedure x-ray: tip of catheter in good position Patient tolerated procedure: well Complications: none
[2024-04-23] MEDS: CALCIUM GLUC 2,000 MG/NS 100ML 2,000 MG/100 ML BAG 100 MG IVPB (12:52)
[2024-04-23] MEDS: PIPERACILLN/TAZ 3.375GM/NS50ML 3.375 GM/50 ML BAG IVPB (12:53)
[2024-04-23] MEDS: POTASSIUM PHOS,M-BASIC-D-BASIC 20 MMOL in SODIUM CHLORIDE 0.9% IV 250 ML 64.17 MMOL IVPB (12:53)
[2024-04-23 13:07] LABS: Glucose Point of Care 107 mg/dl (65-105)
--- NOTE | 2024-04-23 14:36 | PC.NURSE ---
Patient arrived to ICU department at 0927. All belonging brought with patient and bedside report given. Baseline vitals obtained and RT at bedside assisting with vapotherm. MD aware of patient arrival.
[2024-04-23] MEDS: PROPOFOL IV EMULSION 100 ML 22.95 MG IV CONT (15:21)
--- NOTE | 2024-04-23 15:25 | PM.TDS ---
Transfer Discharge Sum: Prov Provider Date of admission: 04/23/24 10:05 Primary care physician: Nataly Zhu MD Admitting clinician: Sara Mccollum MD Consults: 04/23/24 Consult to Physician Routine Comment: Consulting Provider: Marianna Vidal outbound call center representative/MD group to consult: icu admission Reason for consultation: respiratory distress Has provider been notified: Yes DS: Admitting Diagnosis Discharge Date 04/23/2024 Admitting Diagnosis Pneumonia DS: Discharge Diagnosis Discharge Diagnosis (1) Multifocal pneumonia: Code(s): J18.9 - Pneumonia, unspecified organism Status: Acute (2) Hypokalemia: Code(s): E87.6 - Hypokalemia Status: Acute (3) Hypoxia: Code(s): R09.02 - Hypoxemia Status: Acute (4) Pre-diabetes: Code(s): R73.03 - Prediabetes Status: Acute (5) Hypothyroidism: Code(s): E03.9 - Hypothyroidism, unspecified Status: Acute (6) Lucho's disease: Code(s): E06.3 - Autoimmune thyroiditis Status: Acute (7) Panic attacks: Code(s): F41.0 - Panic disorder [episodic paroxysmal anxiety] Status: Acute (8) ANKIT (generalized anxiety disorder): Code(s): F41.1 - Generalized anxiety disorder Status: Acute Transfer Discharge Sum: Med Medications Active and Home Medications: Home Medications multivit with minerals-iron 18 mg-folic ac 400 mcg-vit K 25 mcg tablet (Adults Multivitamin) 1 tablet PO DAILY 04/24/22 [History Confirmed 04/23/24] metformin 750 mg tablet,extended release 24 hr 750 mg PO DAILY #90 tabs 02/02/24 [Rx Confirmed 04/23/24] albuterol sulfate 90 mcg/actuation aerosol inhaler 2 puff inhalation Q4H PRN Shortness Of Breath Or Wheezing 04/23/24 [History Confirmed 04/23/24] hydroxyzine HCl 25 mg tablet 25 mg PO DAILY PRN Anxiety 04/23/24 [History Confirmed 04/23/24] levothyroxine 100 mcg tablet 100 mcg PO DAILY 04/23/24 [History Confirmed 04/23/24] metoprolol tartrate 25 mg tablet 25 mg PO BID 04/23/24 [History Confirmed 04/23/24] sertraline 50 mg tablet 50 mg PO BID 04/23/24 [History Confirmed 04/23/24] Active Medications Acetaminophen (Acetaminophen Elixir 325 Mg/10.15 Ml Udc) 650 mg PO Q6H PRN PRN Reason: Mild Pain (1-3) or Fever Last Admin: 04/23/24 09:40 Dose: 650 mg Dextrose (Dextrose 50% 25 Gm/50 Ml Syringe) 12.5 gm IV PUSH PRN PRN; Protocol PRN Reason: Hypoglycemia Enoxaparin Sodium (Enoxaparin 40 Mg/0.4 Ml Syringe) 40 mg SUB-Q DAILY [facility] Last Admin: 04/23/24 11:47 Dose: 40 mg Glucagon (Glucagon For Inj 1 Mg Vial) 1 mg IM PRN PRN; Protocol PRN Reason: Hypoglycemia Glucose (Glucose Oral Gel 15 Gm Of Glucse In 37.5 Gm Tube) 15 gm PO PRN PRN; Protocol PRN Reason: Hypoglycemia Hydrocortisone Sodium Succinate (Hydrocortisone Sodium Succinate 100 Mg/2 Ml Vial) 50 mg IV PUSH Q6H [facility] Last Admin: 04/23/24 11:47 Dose: 50 mg Vancomycin HCl (Vancomycin 1,500 Mg/Ns 500 Ml) 1,500 mg in 500 mls @ 250 mls/hr IVPB Q12H [facility] Azithromycin (Zithromax) 500 mg in 250 mls @ 250 mls/hr IVPB DAILY [facility] Last Infusion: 04/23/24 12:47 Dose: Infused Piperacillin/Tazobactam/Dextrose (Zosyn 3.375 Gm/Ns 50 Ml) 3.375 gm in 50 mls @ 100 mls/hr IVPB Q6HR [facility] Last Infusion: 04/23/24 13:23 Dose: Infused Dextrose (Dextrose 5% 1,000 Ml) 1,000 mls @ 100 mls/hr IVPB PRN PRN; Protocol PRN Reason: Hypoglycemia Lactated Ringer's (Lr - Lactated Ringers Iv) 1,000 mls @ 75 mls/hr IV CONT .Q02P04L [facility] Stop: 04/24/24 06:14 Last Admin: 04/23/24 11:47 Dose: 75 mls/hr Propofol (Diprivan) 100 mls @ 22.95 mls/hr IV CONT .Q4H22M [facility]; Protocol Last Titration: 04/23/24 12:00 Dose: 45 mcg/kg/min, 22.95 mls/hr Potassium Phosphate 20 mmol/ (Sodium Chloride) 256.6667 mls @ 64.167 mls/hr IVPB ONCE ONE Stop: 04/23/24 15:59 Last Admin: 04/23/24 12:53 Dose: 64.17 mls/hr Fentanyl Citrate (Fentanyl 2,500 Mcg/Ns 250 Ml) 2,500 mcg in 250 mls @ 2.5 mls/hr IV CONT .Q72H [facility]; Protocol
[2024-04-23] MEDS: CENTRAL LINE FLUSH 10 ML IV PUSH (15:44)
[2024-04-23 16:52] LABS: Alveolar/Arterial O2 Gradient 529.5 mmHg; Fractional Inspired Oxygen 100 %; HCO3 ABG 23.8 mEq/l (22.0-26.0); PO2 ABG 148.5 mmHg (80.0-100.0); PO2 FiO2 Ratio Arterial Blood 1.49 %; Total Hemoglobin 9.1 g/dL (12.0-18.0)
[2024-04-23 16:55] LABS: Device VENTILATOR; Modified Allen's Test Pass; Site Drawn RIGHT RADIAL
[2024-04-23 16:56] LABS: Arterial Blood Gas PEEP 8 cmH2O; Arterial Blood Gas Vent Mode CMV; Arterial Blood Gas Ventilator rate 26 /MIN
[2024-04-23 16:57] LABS: Arterial Blood Gas Tidal Volume 400 ml
[2024-04-28 17:50] LABS: Pneumococcal Antigen Urine NOT DETECTED
[2024-04-28 17:50] LABS: Pneumococcal Antigen Urine NOT DETECTED
[2024-04-28 19:23] LABS: Mycoplasma IgM Antibody Titer 427 U/mL
[2024-04-30 22:27] LABS: Legionella pneumophila Ag Ur NOT DETECTED
[2024-04-30 22:27] LABS: Legionella pneumophila Ag Ur NOT DETECTED
== END 2024-04-23 18:04 | disposition short-term general hospital (02) | DRG 871 ==
LOC: ANHED 01:10 → ANH2MED 05:28 → ANHICU 09:37
PROVIDERS: Internal Medicine; Admitting Provider Family Medicine; Emergency Provider Emergency Medicine; PCP Family Medicine; Visit Provider Internal Medicine
DX: A41.9 Sepsis, unspecified organism (principal); J18.9 Pneumonia, unspecified organism; J96.01 Acute respiratory failure with hypoxia; D50.9 Iron deficiency anemia, unspecified; E87.6 Hypokalemia; E06.3 Autoimmune thyroiditis; F42.9 Obsessive-compulsive disorder, unspecified; F41.1 Generalized anxiety disorder; G43.909 Migraine, unspecified, not intractable, without status migrainosus; I10 Essential (primary) hypertension; K21.9 Gastro-esophageal reflux disease without esophagitis; R73.03 Prediabetes; Z87.891 Personal history of nicotine dependence; Z79.84 Long term (current) use of oral hypoglycemic drugs; Z20.822 Contact with and (suspected) exposure to COVID-19
CPT/HCPCS: 36415; 36569; 36600; 71045; 71275; 74018; 80053; 82550; 82607; 82728; 82746; 82805; 82948; 83036; 83540; 83550; 83605; 83690; 83735; 84100; 84478; 84484; 85025; 85046; 85610; 85730; 86140; 86738; 87040; 87070; 87205; 87449; 87637; 87641; 87899; 93005; 94002; 94640; 96361; 96365; 96375; 96376; 99285; A9270; C1751; G0378; J0456; J0613; J0696; J1650; J1720; J1885; J2060; J2250; J2470; J2543; J2704; J3010; J3370; J3480; J7030; J7040; J7050; J7120; Q9967

== ENCOUNTER 2024-05-14 20:04 | Emergency (ER) | payer OTHER, SELFPAY ==
--- NOTE | ~2024-05-14 | CT_ITS ---
EXAMINATION: CTA chest PE protocol DATE: 05/15/2024 06:42 CDT INDICATION: Dyspnea. Recent intubation. TECHNIQUE: Computed tomographic angiography (CTA) of the chest was performed with 100 mL Omnipaque-35 0 intravenous contrast. The dose-length product was 338.68 mGy-cm. Maximum intensity projection 3D-re constructions of the aorta and other arteries were constructed by the technologist on a separate work station. Automated exposure control and iterative reconstruction technique were employed. COMPARISON: CT dated 04/23/2024. FINDINGS: Study is technically adequate without evidence for pulmonary embolism. There is mediastinal and bilateral hilar lymph node enlargement. There are shotty axillary lymph nodes. No evidence for a ortic aneurysm or dissection. Heart size normal. Upper abdomen is unremarkable. Status post cholecyst ectomy. There are patchy groundglass opacifications as well as focal areas of consolidation in both l ungs, consistent with multifocal pneumonia, somewhat improved on the right compared with the CT dated 04/23/2024, although with progression on the left. No pneumothorax. No endobronchial lesions. No acu te osseous abnormality. IMPRESSION: 1. Bilateral multifocal pneumonia with improvement on the left and progression on the right compared with prior study. 2: Mediastinal and bilateral hilar lymphadenopathy, likely reactive. Reviewed, dictated and finalized at location B.
[2024-05-14 20:09] VITALS: BP 153/88; PULSE 124; RESP 15; TEMP 37.2; O2SAT 100
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
[2024-05-15] MEDS: SODIUM CHLORIDE 0.9% IV 1,000 ML 999 ML IV CONT (01:41)
[2024-05-15 01:52] VITALS: BP 133/79; PULSE 95; RESP 20; O2SAT 100
--- NOTE | 2024-05-15 02:00 | ECG_ITS ---
Test Date: 2024-05-15 02:00:16 Measurements Intervals [place] Rate: 87 P: 54 WI: 147 QRS: -2 QRSD: 84 T: 10 QT: 358 QTc: 433 Interpretive Statements SINUS RHYTHM RSR' IN V1 OR V2, PROBABLY NORMAL VARIANT DELAYED PRECORDIAL R/S TRANSITION VOLTAGE CRITERIA FOR LVH BORDERLINE ECG Compared to ECG 04/23/2024 01:23:18 HEART RATE HAS DECREASED Electronically Signed On 05-15-2024 09:13:03 CDT by Gamaliel Steven D.O.
[2024-05-15 02:06] LABS: Basophils Absolute Auto 0.1 K/mm3 (0.0-0.1); Basophils Percent Auto 0.6 % (0.2-1.2); Eosinophils Absolute Auto 0.4 K/mm3 (0-0.3); Hematocrit 31.6 % (37.0-47.0); Hemoglobin 9.9 g/dL (12.0-15.0); Immature Granulocyte Absolute 0.11 K/mm3 (0.00-0.031); Immature Granulocyte Percent A 1.3 % (0-0.5); Lymphocytes Absolute Auto 2.25 K/mm3 (0.9-3.2); Lymphocytes Percent Auto 26.7 % (18.3-44.2); Mean Corpuscular HGB Conc 31.3 g/dl (32-36); Mean Corpuscular Hemoglobin 26.1 pg (26-34); Mean Corpuscular Volume 83.4 fl (80-100); Mean Platelet Volume 9.1 fl (7.4-10.4); Monocytes Absolute Auto 0.8 K/mm3 (0.1-0.6); Monocytes Percent Auto 9.6 % (2.6-8.5); Neutrophils Absolute Auto 4.8 K/mm3 (1.3-6.7); Neutrophils Percent Auto 56.8 % (45.5-73.1); Platelet Count Result 357 k/mm3 (150-375); Red Blood Count 3.79 M/mm3 (4.2-5.4); Red Cell Distribution Width 18.2 % (11.5-14.5); White Blood Count 8.4 K/mm3 (4.5-10.0)
[2024-05-15 02:11] LABS: INR 0.9; Prothrombin Time 12.3 Seconds (11.1-14.7)
[2024-05-15 02:12] LABS: Magnesium 1.9 mg/dL (1.6-2.3)
[2024-05-15 02:12] LABS: Partial Thromboplastin Time 35.1 Seconds (22.3-36.8)
[2024-05-15 02:14] LABS: Lactic Acid Reflex 1.4 mmol/L (0.7-2.0)
[2024-05-15 02:14] LABS: Alanine Aminotransferase 38 U/L (6-35); Albumin Level 3.9 g/dL (3.5-5.1); Alkaline Phosphatase 96 U/L (38-126); Anion Gap 9 mmol/L (4-12); Aspartate Amino Transferase 29 U/L (14-36); Bilirubin,Total 0.2 mg/dL (0.2-1.3); Blood Urea Nitrogen 15 mg/dL (7-17); Carbon Dioxide 24 mmol/L (22-30); Chloride 103 mmol/L (98-107); Estimated Glomerular Filt Rate > 60; Glucose 106 mg/dL (65-110); Potassium 4.2 mmol/L (3.4-5.0); Sodium 136 mmol/L (137-145)
[2024-05-15 02:25] LABS: Troponin I < 0.012 ng/mL (0.000-0.034)
--- NOTE | 2024-05-15 03:40 | PC.NURSE ---
Report received from TAMMY Blanton. Assumed care of patient at this time.
[2024-05-15 04:29] VITALS: BP 132/85; PULSE 104; TEMP 36.7; O2SAT 98
[2024-05-15 04:46] VITALS: RESP 20
[2024-05-15] MEDS: cefTRIAXone 2 GM/NS 100 ML 2 GM/100 ML BAG IVPB (04:47)
[2024-05-15 04:51] LABS: Add Urine Microscopic? NO; Appearance Urine Clear (Clear); Bilirubin Urine Negative (Negative); Blood Urine Negative (Negative); Color Urine Yellow (Yellow); Glucose Urine UA Negative (Negative); Ketones Urine Negative (Negative); Leukocyte Esterase Ur Negative LEU/UL (Negative); Nitrate Urine Negative (Negative); Protein Urine Negative (Negative); Specific Grav Ur 1.018 (1.001-1.035); Urobilinogen Urine 0.2 mg/dL (<2.0); pH Urine 5.5 (5.0-9.0)
[2024-05-15] MEDS: AZITHROMYCIN 500 MG/NS 250 ML 500 MG/250 ML BAG 250 MG IVPB (04:58)
[2024-05-15 05:56] VITALS: BP 112/82; PULSE 100; RESP 18; TEMP 36.7; O2SAT 98
== END 2024-05-15 06:06 | disposition home or self-care (01) ==
PROVIDERS: Emergency Provider Student in an Organized Health Care Education/Training Program; PCP Family Medicine
DX: J15.7 Pneumonia due to Mycoplasma pneumoniae (principal); R07.89 Other chest pain; E06.3 Autoimmune thyroiditis; K21.9 Gastro-esophageal reflux disease without esophagitis; K58.9 Irritable bowel syndrome, unspecified; F41.1 Generalized anxiety disorder; F42.9 Obsessive-compulsive disorder, unspecified; F32.9 Major depressive disorder, single episode, unspecified; Z86.73 Personal history of transient ischemic attack (TIA), and cerebral infarction without residual deficits; Z87.442 Personal history of urinary calculi; Z87.891 Personal history of nicotine dependence; Z90.49 Acquired absence of other specified parts of digestive tract; Z90.721 Acquired absence of ovaries, unilateral; Z79.899 Other long term (current) drug therapy; Z79.84 Long term (current) use of oral hypoglycemic drugs
CPT/HCPCS: 36415; 71275; 80053; 81003; 83605; 83735; 84484; 85025; 85610; 85730; 93005; 96361; 96365; 96367; 99284; J0456; J0696; J7030; Q9967

== ENCOUNTER 2025-04-05 15:50 | Outpatient (CLI) | payer BC, SELFPAY ==
--- NOTE | ~2025-04-05 | MM_ITS ---
EXAMINATION: MM screening jaquleine BI w hardeep HISTORY: Screening mammogram TECHNIQUE: Craniocaudal and mediolateral oblique 3-D tomosynthesis images were obtained and synthetic 2-D images were generated. CAD analysis was submitted and interpreted. COMPARISON: No prior mammogram is available for comparison at this institution. BREAST PARENCHYMAL COMPOSITION:Dense: The breasts are heterogeneously dense, which may obscure small masses. FINDINGS: No suspicious mass, calcification, or architectural distortion are identified in either breast to suggest malignancy. There has been no suspicious interval change. IMPRESSION: No mammographic evidence of malignancy. Recommend routine screening mammography in one year. BI-RADS Category 1: Negative Reviewed, dictated and finalized at location .
== END 2025-04-05 15:51 | disposition home or self-care (01) ==
LOC: MICIMG 15:59
PROVIDERS: PCP Family Medicine; Visit Provider Obstetrics & Gynecology
DX: Z12.31 Encounter for screening mammogram for malignant neoplasm of breast (principal)
CPT/HCPCS: 77063; 77067